=== PATIENT | male | born 1995 | race American Indian/Alaskan Native ===

== ENCOUNTER 2021-07-06 11:21 | Emergency (ER) | payer OTHER ==
--- NOTE | 2021-07-06 13:29 | Emergency Department Report ---
HPI - General Chief Complaint: Chest Pain Time Seen by Provider: 07/06/21 13:03 - HPI HPI: Room 35 The patient is a 26-year-old male present with a chief complaint of Covid symptoms. The patient states over the past 2 days he developed cold-like sympto ms which include a subjective fever, chills a cough productive yellow sputum headache and body aches. The patient states his mother who is asymptomatic 3 days ago was rushed to the hospital last night and diagnosed with Covid. The patient states he and his mother have both been vaccinated against Covid. The patient states he received his second Pfizer vaccine approximately 6 months ago. ED Past Medical Hx - Past Medical History Hx Hypertension: No (Undiagnosed) - Surgical History Past Surgical History?: No - Family History Family history: no significant - Social History Smoking Status: Never Smoker Substance Use Type: None (Denies illicit drug use), Alcohol (Frequently) - Medications Home Medications: Home Medications Medication Instructions Recorded Confirmed Last Taken Type Albuterol Mdi (or & Nicu Only) 2 puff IH QID PRN #8.5 gram 07/06/21 Unknown Rx [ProAir HFA Inhaler] Azithromycin [Zithromax Z-KEO] 0 mg PO DAILY #6 tab 07/06/21 Unknown Rx Cyclobenzaprine [Flexeril] 10 mg PO TID PRN #10 tablet 07/06/21 Unknown Rx Ibuprofen [Motrin 800 MG tab] 800 mg PO Q8HR PRN #20 tablet 07/06/21 Unknown Rx ED Review of Systems ROS: Stated complaint: SHORTNESS OF BREATH/COUGH/CHEST PAIN/POSSIBLE EXPO Other details as noted in HPI Constitutional: chills, fever (Subjective) Eyes: denies: eye pain ENT: denies: throat pain Respiratory: cough Cardiovascular: denies: chest pain Endocrine: no symptoms reported Gastrointestinal: denies: abdominal pain Genitourinary: denies: dysuria Musculoskeletal: myalgia Neurological: headache Physical Exam - Physical Exam Vital Signs: Vital Signs 07/06/21 12:10 Temperature 98.4 F Pulse Rate 88 Respiratory 14 Rate Blood Pressure 155/106 [Left] O2 Sat by Pulse 100 Oximetry Physical Exam: GENERAL: The patient is well-developed well-nourished male lying on stretcher not appearing to be in acute distress. [] HEENT: Normocephalic. Atraumatic. Extraocular motions are intact. Patient has moist mucous membranes. Small tender regions of swelling at the nostrils located at the base of the septum of either nostril. Tender to palpation. No drainage NECK: Supple. No meningitic signs are noted. Trachea midline CHEST/LUNGS: Clear to auscultation. There is no respiratory distress noted. Occasional cough HEART/CARDIOVASCULAR: Regular. There is no tachycardia. There is no gallop rub or murmur. ABDOMEN: Abdomen is soft, nontender. Patient has normal bowel sounds. There is no abdominal distention. SKIN: There is no rash. There is no edema. There is no diaphoresis. NEURO: The patient is awake, alert, and oriented. The patient is cooperative. The patient has no focal neurologic deficits. The patient has normal speech. GCS 15 MUSCULOSKELETAL: There is no evidence of acute injury. ED Course Vital Signs 07/06/21 12:10 Temperature 98.4 F Pulse Rate 88 Respiratory 14 Rate Blood Pressure 155/106 [Left] O2 Sat by Pulse 100 Oximetry ED Medical Decision Making - Lab Data Laboratory Tests 07/06/21 07/06/21 07/06/21 13:55 13:55 13:55 WBC 5.6 RBC 5.37 H Hgb 16.3 H Hct 48.9 H MCV 91 MCH 30 MCHC 33 RDW 13.9 Plt Count 206 Lymph % (Auto) 22.1 Bell % (Auto) 10.4 H Eos % (Auto) 3.4 Baso % (Auto) 0.5 Lymph # (Auto) 1.2 Bell # (Auto) 0.6 Eos # (Auto) 0.2 Baso # (Auto) 0.0 Seg Neutrophils % 63.6 Seg Neutrophils # 3.6 Sodium 139 Potassium 4.4 Chloride 97.7 L Carbon Dioxide 30 Anion Gap 16 BUN 8 L Creatinine 0.9 Estimated GFR > 60 BUN/Creatinine Ratio 9 Glucose 94 Lactic Acid 1.00 Calcium 9.4 Total Creatine Kinase CK-MB (CK-2) CK-MB (CK-2) Rel Index Troponin T Influenza A (Rapid) Influenza B (Rapid) 07/06/21 07/06/21 13:55 Unknown WBC RBC Hgb Hct MCV MCH MCHC RDW Plt Count Lymph % (Auto) Bell % (Auto) Eos % (Auto) Baso % (Auto) Lymph # (Auto) Bell # (Auto) Eos # (Auto) Baso # (Auto) Seg Neutrophils % Seg Neutrophils # Sodium Potassium Chloride Carbon Dioxide Anion Gap BUN Creatinine Estimated GFR BUN/Creatinine Ratio Glucose Lactic Acid Calcium Total Creatine Kinase 553 H CK-MB (CK-2) 4.3 H CK-MB (CK-2) Rel Index 0.7 Troponin T < 0.010 Influenza A (Rapid) Negative Influenza B (Rapid) Negative - EKG Data -: EKG Interpreted by Me EKG shows normal: sinus rhythm Rate: normal - EKG Data When compared to previous EKG there are: previous EKG unavailable Interpretation: other (Early repolarization) - Radiology Data Radiology results: report reviewed (Chest x-ray), image reviewed (Chest x-ray) interpreted by me: Chest x-ray-no definite focal features, no pneumothorax [facility] [address] [place] [address] XRay Report Signed Patient: EUGENIO FRANCOIS MR#: [id number] : 1995 Acct:[id number] Age/Sex: 26 / M ADM Date: 07/06/21 Loc: ED Attending Dr: Ordering Physician: KIRBY PEREZ MD Date of Service: 07/06/21 Procedure(s): XR chest routine 2V Accession Number(s): [id number] cc: KIRBY PEREZ MD Fluoro Time In Minutes: CHEST 2 VIEWS INDICATION / CLINICAL INFORMATION: Cough. Mother COVID positive. COMPARISON: None available. FINDINGS: SUPPORT DEVICES: None. HEART / MEDIASTINUM: The heart size and pulmonary vasculature are normal. LUNGS / PLEURA: No significant pulmonary or pleural abnormality. No pneumothorax. ADDITIONAL FINDINGS: No significant additional findings. IMPRESSION: No acute findings. There is no evidence of pneumonia. Signer Name: Jay Silva MD Signed: 07/06/2021 1:40 PM Workstation Name: [id number] Transcribed By: RT Dictated By: Jay Silva MD Electronically Authenticated By: Jay Silva MD Signed Date/Time: 07/06/21 1340 DD/ 1339 TD/TT: Print Cancel - Medical Decision Making 2-minute walking SPO2 94-90% on room air - Differential Diagnosis COVID-19, pneumonia, URI, bronchitis Critical care attestation.: If time is entered above; I have spent that time in minutes in the direct care of this critically ill patient, excluding procedure time. ED Disposition Clinical Impression: Cough, Suspected COVID-19 virus infection Disposition: HOME / SELF CARE / HOMELESS Is pt being admited?: No Does the pt Need Aspirin: No Condition: Stable Instructions: Cough, Adult, COVID-19: How to Protect Yourself and Others - CDC, COVID-19 Frequently Asked Questions, Prevent the Spread of COVID-19 if You Are Sick - CDC, COVID-19, Infection Prevention in the Home Additional Instructions: You should go to your local Covid 19 testing center to be tested for coronavirus. Return to the emergency department should you develop worsening symptoms, inability to tolerate food or liquids, high fever or any other concerns Prescriptions: Cyclobenzaprine [Flexeril] 10 mg PO TID PRN #10 tablet PRN Reason: Muscle Spasm Ibuprofen [Motrin 800 MG tab] 800 mg PO Q8HR PRN #20 tablet PRN Reason: Pain, Moderate (4-6) Albuterol Mdi (or & Nicu Only) [ProAir HFA Inhaler] 2 puff IH QID PRN #8.5 gram PRN Reason: Shortness Of Breath Azithromycin [Zithromax Z-KEO] 0 mg PO DAILY #6 tab Referrals: [facility] [Provider Group] - 3-5 Days Time of Disposition: 15:08
--- NOTE | 2021-07-06 13:44 | XRay Report ---
CHEST 2 VIEWS INDICATION / CLINICAL INFORMATION: Cough. Mother COVID positive. COMPARISON: None available. FINDINGS: SUPPORT DEVICES: None. HEART / MEDIASTINUM: The heart size and pulmonary vasculature are normal. LUNGS / PLEURA: No significant pulmonary or pleural abnormality. No pneumothorax. ADDITIONAL FINDINGS: No significant additional findings. IMPRESSION: No acute findings. There is no evidence of pneumonia. Signer Name: Jay Silva MD Signed: 07/06/2021 1:40 PM Workstation Name: [id number]
[2021-07-06 14:29] LABS: Basophils % (Auto) 0.5 % (0.0-1.8); Eosinophils # (Auto) 0.2 K/mm3 (0.0-0.4); Eosinophils % (Auto) 3.4 % (0.0-4.3); Hematocrit 48.9 % (35.5-45.6); Hemoglobin 16.3 gm/dl (11.8-15.2); Lymphocytes # (Auto) 1.2 K/mm3 (1.2-5.4); Lymphocytes % (Auto) 22.1 % (13.4-35.0); Mean Corpuscular HGB Conc 33 % (32-34); Mean Corpuscular Volume 91 fl (84-94); Monocytes # (Auto) 0.6 K/mm3 (0.0-0.8); Monocytes % (Auto) 10.4 % (0.0-7.3); Platelet Count 206 K/mm3 (140-440); Red Blood Count 5.37 M/mm3 (3.65-5.03); Red Cell Distribution Width 13.9 % (13.2-15.2)
[2021-07-06 14:33] LABS: BUN/Creatinine Ratio 9; Blood Urea Nitrogen 8 mg/dL (9-20); Calcium 9.4 mg/dL (8.4-10.2); Hemolysis Index 10
[2021-07-06 14:40] LABS: Creatine Kinase MB 4.3 ng/mL (0.0-4.0)
[2021-07-06 15:39] VITALS: BP 154/90
--- NOTE | 2021-07-10 10:25 | Electrocardiograph Report ---
[facility] Test Date: 2021-07-06 Test Time: 12:16:57 Pat Name: EUGENIO FRANCOIS Department: Room: Gender: M [employer]: TV : 1995 Requested By: KIRBY PEREZ Order Number: [id number] Reading MD: Pranay Macdonald Measurements Intervals [place] Rate: 82 P: 77 MO: 138 QRS: 84 QRSD: 98 T: 78 QT: 359 QTc: 420 Interpretive Statements Sinus rhythm LAE, consider biatrial enlargement No previous ECG available for comparison Electronically Signed On 07-10-2021 10:25:36 EST by Pranay Macdonald
== END 2021-07-06 15:46 | disposition home or self-care (01) ==
LOC: ED 11:21
DX: R50.9 Fever, unspecified (principal); R05.9 Cough, unspecified; Z20.822 Contact with and (suspected) exposure to COVID-19
CPT/HCPCS: 36415; 71046; 80048; 82140; 82550; 82553; 84484; 85025; 87040; 87400; 93005; 99283